=== PATIENT | female | born 1950 | race African-American/Black ===

== ENCOUNTER → 2019-06-20 | Outpatient (CLI) | payer OTHER | LOC: CAT 11:20 | DX: Z13.6 Encounter for screening for cardiovascular disorders (principal); I25.10 Atherosclerotic heart disease of native coronary artery without angina pectoris; E78.00 Pure hypercholesterolemia, unspecified ==

== ENCOUNTER → 2019-06-28 | Outpatient (CLI) | payer OTHER ==
[~2019-06-28] VITALS: Ht 167.6 cm; Wt 88.5 kg
[~2019-06-28] MED LIST: ASPIR 8181 MG PO; CHANTIX0.5 MG PO; CLONIDINE HCL0.2 M2 PO; DITROPAN XL10 M1 PO; EFFEXOR XR75 MG PO; NORVASC10 MG PO; POTASSIUM20 PO; SENNA8.6 MG PO
[2019-06-28 07:53] VITALS: BP 150/79
== END | disposition home or self-care (01) ==
LOC: SPEC 06:53
DX: I70.213 Atherosclerosis of native arteries of extremities with intermittent claudication, bilateral legs (principal); I70.1 Atherosclerosis of renal artery; I10 Essential (primary) hypertension; I25.10 Atherosclerotic heart disease of native coronary artery without angina pectoris; F17.210 Nicotine dependence, cigarettes, uncomplicated; Z88.8 Allergy status to other drugs, medicaments and biological substances; Z79.899 Other long term (current) drug therapy; Z98.890 Other specified postprocedural states

== ENCOUNTER 2019-07-17 07:07 | Observation (INO) | payer OTHER ==
[~2019-07-17] VITALS: Ht 167.6 cm; Wt 90.7 kg
--- NOTE | ~2019-07-17 | H ---
[facility] [place] [address] [place] [address] HISTORY AND PHYSICAL Name: GIOVANI SMILEY Room #: REG WILIAN GuevaraLizzeth#: [id number] Admission: 07/17/19 ������������������ Attend Phys: Chris Hickman MD, Discharge: ������������������ Date of : 54 Report #: [id number] THIS REPORT FOR: //name// CC: Annette Heck HISTORY OF PRESENT ILLNESS: The patient is a 68-year-old female. She has been seen by my partner, Dr. Watson for peripheral vascular disease. She had a prior right SFA intervention. She was brought in today for left SFA intervention and been having some question of anginal-type symptoms, although she is somewhat inactive because of the claudication. She is a tobacco user. She does not have documented coronary artery disease. She has some nonspecific EKG changes with some anterior lateral T-wave abnormalities. She has been maintained on Plavix, aspirin, amlodipine 10, Ditropan, Catapres 0.2 at night, Gillian-Colace, Chantix, Effexor, atorvastatin 40 mg recently started. PAST MEDICAL HISTORY: Positive for hypertension, peripheral vascular disease, tobacco abuse, hypercholesterolemia, DJD, obesity, and bladder surgery. ALLERGIES: BUPROPION, NIFEDIPINE and VALSARTAN. SOCIAL HISTORY: She is . Positive tobacco user, social alcohol. No illicit drugs. Two children. FAMILY HISTORY: Mother had aortic stenosis and an amputation with peripheral vascular disease. REVIEW OF SYSTEMS: Negative except for some mild progressive dyspnea. PHYSICAL EXAMINATION: VITAL SIGNS: Blood pressure is somewhat labile, running 150-170 systolic, pulse is 80s. HEENT: Eyes reveal xanthelasmas. Pharynx is clear. NECK: Shows preserved upstrokes without JVD or bruits. LUNGS: Clear. CARDIOVASCULAR: Regular rate and rhythm, S1, S2. ABDOMEN: Soft. No HSM or abdominal bruit. EXTREMITIES: Reveal no edema. I cannot palpate the distal pulses on the left, the right are intact. MUSCULOSKELETAL: Some valgus deformity of the knees. Generalized arthritic changes. NEUROLOGIC: Intact. SKIN: Warm and dry without xanthoma or ulcer. ASSESSMENT: [facility] [address] [place] [address] HISTORY AND PHYSICAL Name: GIOVANI SMILEY Room #: [facility] [id number] Admission: 07/17/19 ������������������ Attend Phys: Chris Hickman MD, Discharge: ������������������ Date of : 54 Report #: [id number] 1. Peripheral vascular disease as described above. 2. Prior right SFA stent, still has high-grade left SFA stenosis. 3. Suspected coronary artery disease with question of anginal-type symptoms. 4. Hypertension. 5. Hypercholesterolemia. 6. Tobacco abuse. RECOMMENDATIONS AND PLAN: We will proceed to catheterization lab for peripheral vascular intervention, would recommend cardiac catheterization in the same setting, possible intervention if indicated. This has been discussed with the patient and would like to proceed. Thank you for asking me to assist in the care of this patient. ��������������������������������������������� ���������������������������������������� By: ��������������������������������������������� 0910 0935 Chris Hickman MD, FACC /nt
[2019-07-17 07:32] VITALS: BP 155/64
[2019-07-17] MEDS ORDERED: LIPITOR40 MG PO (07:40)
[2019-07-17] MEDS ORDERED: PLAVIX 75 MG TA75 M1 PO (07:41)
[2019-07-17 07:50] LABS: HEMATOCRIT 40.1 % (37.0-47.0); HEMOGLOBIN 13.7 gm/dL (12.0-15.0); MCHC 34.1 g/dL (28.0-37.0); RBC 4.56 mil/uL (4.20-5.00); RDW 15.8 % (10.5-14.5); WBC 8.2 thou/uL (4.0-11.0)
[2019-07-17 07:53] LABS: CALCIUM 9.5 mg/dL (8.5-10.1); CREATININE 0.8 mg/dL (0.6-1.0); POTASSIUM 3.8 mmol/L (3.5-5.1)
--- NOTE | 2019-07-17 08:26 | EKG ---
[place] [address] [facility] [place] [address] ELECTROCARDIOGRAM REPORT Name: GIOVANI SMILEY [facility] [id number] ������������������ Admission: 07/17/19 ������������������ Attend Phys: Chris Hickman MD, Discharge: ������������������ Date of : 54 Report #: [id number] ����������������������������������������������������������������� [id number] THIS REPORT FOR: //name// [facility] Test Date: 2019-07-17 Test Time: 07:56:32 Pat Name: GIOVANI SMILEY Department: Room: Gender: F Room Service Manager: Donnie GARDUNO : 1950 Requested By: Chris Hickman Order Number: [id number] MD: Johnnie Garcia Measurements Intervals [place] Rate: 68 P: 14 IN: 154 QRS: -34 QRSD: 106 T: 119 QT: 411 QTc: 438 Interpretive Statements Sinus rhythm Nonspecific T wave abnormality No previous ECG available for comparison Electronically Signed On 07-17-2019 8:25:46 CDT by Johnnie Garcia [email or web address] ��������������������������������������������� <ELECTRONICALLY SIGNED> ���������������������������������������� By: Johnnie Garcia MD, [facility] ��������������������������������������������� 07/17/19 0825 0756 0756 Johnnie Garcia MD, FACC /EPI
--- NOTE | 2019-07-17 16:54 | CATHLAB ---
[facility] [address] [place] [address] INVASIVE PROCEDURE REPORT Name: GIOVANI SMILEY Room #: REG JUAN Parsons#: [id number] ������������� Admission: 07/17/19 ������������� Attend Phys: Chris Hickman, Discharge: ��� ������������� ��� Date of : 54 Date of Service: 07/17/19 1653 �� Report #: [id number] �������� ��������������������������������������������[id number] THIS REPORT FOR: //name// APPROVED REPORT Study performed: 07/17/2019 08:09:15 Patient Details Patient Status: Out-Patient Room #: The patient is a 68 year-old female Event Personnel Chris Hikcman Spooling Supervisor, Loni Yun RTR, PATIENT CENTERED CARE SPECIALIST Monitor, Lexie Valdez RN RN, Starla Storm RN RN, Carlos Wilhelm, Robert Mosley RTR Monitor Procedures Performed Art Access - R femoral artery* Left Heart Cath w/or w/o Coronaries 6515417 [facility] [address] Place w/wo Plasty Single LAD 576102 19411 Initial Mod Sed Same Phys/QHP Gr5y 096358 Indication Chest pain Procedure Narrative The Right Groin^ was infiltrated with 1% Lidocaine subcutaneous anesthesia. A PINNACLE 6FR Sheath #[id number] sheath was inserted into the RFA^. Coronary angiography was performed using coronary diagnostic catheters. The right coronary system was accessed and visualized with a JR4 catheter. The left coronary system was accessed and visualized with a JL4 catheter. The left ventricle was accessed and visualized with a pigtail catheter. Left ventriculogram was performed in 30 degree projection. Intraoperative Conscious Sedation Sedation start time: 08:30 Case end Time: 09:02 Fentanyl 75.0 mcg Versed 1 mg Fluoro time and Contrast is a total of Cardiac Cath and Interventional Radiology procedures Fluoro Time: 23.15 minutes Dose: DAP 98014.10 cGycm2 2552 mGy Contrast Type and Amount: Visipaque 293 ml [facility] [place] [address] INVASIVE PROCEDURE REPORT Name: BALJITGIOVANI [facility] [id number] ������������� Admission: 07/17/19 ������������� Attend Phys: Chris Hickman, Discharge: ��� ������������� ��� Date of : 54 Date of Service: 07/17/19 1653 �� Report #: [id number] �������� ��������������������������������������������[id number] Hemodynamics The aortic pressure is 170/83 mmHg with a mean of 59 mmHg. The left ventricular pressure is 154/2 mmHg with a mean of mmHg. The left ventricular end diastolic pressure is 25 mmHg. PCI Technique Lesion Percutaneous coronary intervention was performed on the mid left anterior descending artery segment. A LAUNCHER 6FR EBU 3.5 #[id number] Guide Catheter was used to engage the ostium. A Luge Wire .014 x 182CM #[id number] Interventional Guidewire was used to cross the lesion. BALLOON DILATION A Balloon catheter Sprinter OTW 2.5 x 25 #[id number] was inserted and inflated up to 6.00atm for 24seconds. Additional Inflation: 8.00atm for 19seconds. STENT DEPLOYMENT A drug-eluting stent RESOLUTE NATASHA OTW 2.75 X 22 #[id number] was inserted and inflated up to 10.00atm for 27seconds. Additional Inflation: 14.00atm for 28seconds. PCI Technique Lesion 2 Percutaneous Coronary Intervention was performed on the Mid com femoral. PCI Technique Lesion 3 Percutaneous Coronary Intervention was performed on the Common iliac. Conclusion #1 successful PTCA stent of a proximal mid long LAD 90-95% lesion to 0% with a 2.75 x 22 resolute Natasha medicated stent 0% residual SUDHA grade 3 flow #2 left main large free of disease giving rise to LAD and circumflex #3 circumflex OM is nondominant with mild irregularities #4 dominant right coronary artery is moderately diseased in the proximal mid vessel a more focal segment of 70% proximally will follow this closely diffuse disease distally and a dominant vessel. Posterior lateral branch is severely disease and not amenable to intervention. Recommendations and plan: Continue aggressive risk factor modification dual antiplatelet therapy will add Effient DC Plavix. Continue with peripheral intervention per Dr. Watson. We will follow [address] [address] INVASIVE PROCEDURE REPORT Name: MAMIE SMILEYLLE Room #: NERY Parsons#: [id number] ������������� Admission: 07/17/19 ������������� Attend Phys: Chris Hickman, Discharge: ��� ������������� ��� Date of : 54 Date of Service: 07/17/19 1653 �� Report #: [id number] �������� ��������������������������������������������[id number] for possible intervention to dominant right at a later date pending further evaluation with stress testing. Aggressive medical therapy initiation of statin beta blockers. ��������������������������������������������� <ELECTRONICALLY SIGNED> ���������������������������������������� By: Chris Hickman MD, FACC ��������������������������������������������� 07/17/19 165 52 52 Chris Hickman MD, FACC /INF
--- NOTE | 2019-07-17 18:55 | NUR ---
REPORT CALLED TO BOBO FONTANA. PT TAKEN TO ROOM 213 VIA W/C STABLE CONDITION.
[2019-07-17 20:30] VITALS: BP 160/84
[2019-07-18 00:45] VITALS: BP 127/69
[2019-07-18 04:45] VITALS: BP 129/74
--- NOTE | 2019-07-18 05:25 | NUR ---
ASSUMED PT CARE AT START OF SHIFT. COMPLETED ADMIT ASSESSMENT AND CHARTING. R GROIN CATH SITE SOFT WITH NO BLEEDING AND NO HEMATOMA PRESENT. PT HAD NO COMPLAINT OF PAIN THROUGHOUT NIGHT. TEMP ELEVATED AROUND MIDNIGHT, GAVE TYELENOL AND TEMP DECREASED. WILL CONTINUE TO FOLLOW PT POC AND MONITOR.
[2019-07-18 05:33] LABS: HEMATOCRIT 37.8 % (37.0-47.0); HEMOGLOBIN 12.8 gm/dL (12.0-15.0); MCH 29.8 pg (26.0-34.0); MCHC 33.8 g/dL (28.0-37.0); MCV 88.3 fL (80.0-100.0); RBC 4.28 mil/uL (4.20-5.00); RDW 15.7 % (10.5-14.5); WBC 10.8 thou/uL (4.0-11.0)
[2019-07-18 05:40] LABS: ALBUMIN 3.6 g/dL (3.4-5.0); CALCIUM 9.1 mg/dL (8.5-10.1); CREATININE 0.8 mg/dL (0.6-1.0); POTASSIUM 3.6 mmol/L (3.5-5.1); TOTAL BILIRUBIN 0.3 mg/dL (<0.1-1.0); TOTAL PROTEIN 7.1 g/dL (6.4-8.2)
[2019-07-18 05:42] LABS: TROPONIN-I 2.15 ng/mL (<0.06)
[2019-07-18] MEDS ORDERED: EFFIENT10 MG PO (07:33)
[2019-07-18] MEDS ORDERED: ASPIRIN325 PO (07:33)
[2019-07-18] MEDS ORDERED: TOPROL XL25 MG PO (07:35)
[2019-07-18 08:21] VITALS: BP 144/79
--- NOTE | 2019-07-18 08:44 | EKG ---
[place] [address] [facility] [facility] [employer] [address] ELECTROCARDIOGRAM REPORT Name: GIOVANI SMILEY Room #: 213-P [facility] M.R.#: [id number] ������������������ Admission: 07/17/19 ������������������ Attend Phys: Chris Hickman MD, Discharge: ������������������ Date of : 54 Report #: [id number] ����������������������������������������������������������������� [id number] THIS REPORT FOR: //name// [facility] Test Date: 2019-07-17 Test Time: 11:52:08 Pat Name: GIOVANI SMILEY Department: Room: 213 Gender: F Dog Or Horse Racing Official: Donnie GARDUNO : 1950 Requested By: Chris Hickman Order Number: [id number] MD: Johnnie Garcia Measurements Intervals [place] Rate: 55 P: 37 [place]: 149 QRS: -22 QRSD: 109 T: 102 QT: 451 QTc: 432 Interpretive Statements Sinus bradycardia Nonspecific T abnrm, anterolateral leads Compared to ECG 07/17/2019 07:56:32 No significant change was found Electronically Signed On 07-18-2019 8:44:15 CDT by Johnnie Garcia [email or web address] ��������������������������������������������� <ELECTRONICALLY SIGNED> ���������������������������������������� By: Johnnie Garcia MD, [facility] ��������������������������������������������� 07/18/19 0844 1152 1152 Johnnie Garcia MD, [facility] /EPI
--- NOTE | 2019-07-18 09:04 | EKG ---
[place] [address] [address] [facility] [place] [address] ELECTROCARDIOGRAM REPORT Name: GIOVANI SMILEY Room #: 213-[facility] M.R.#: [id number] ������������������ Admission: 07/17/19 ������������������ Attend Phys: Chris Hickman MD, Discharge: ������������������ Date of : 54 Report #: [id number] ����������������������������������������������������������������� [id number] THIS REPORT FOR: //name// [facility] Test Date: 2019-07-18 Test Time: 07:31:54 Pat Name: GIOVANI SMILEY Department: Room: 213 Gender: F [employer]: VERONICA : 1950 Requested By: Chris Hickman Order Number: [id number] MD: Johnnie Garcia Measurements Intervals [place] Rate: 72 P: 37 [place]: 148 QRS: -18 QRSD: 103 T: 104 QT: 380 QTc: 416 Interpretive Statements Sinus rhythm Nonspecific ST and T wave abnormality Compared to ECG 07/17/2019 07:56:32 Nonspecific change in the ST and T-wave segments Electronically Signed On 07-18-2019 9:03:48 CDT by Johnnie Garcia [email or web address] ��������������������������������������������� <ELECTRONICALLY SIGNED> ���������������������������������������� By: Johnnie Garcia MD, [facility] ��������������������������������������������� 07/18/19902 0 0 Johnnie Garcia MD, [facility] /EPI
[2019-07-18 09:51] VITALS: BP 144/76
[2019-07-18 10:01] VITALS: BP 144/76
--- NOTE | 2019-07-18 10:49 | NUR ---
ASSUMED CARE OF PT AT SHIFT CHANGE. ASSESSMENT CHARTED. MEDS GIVEN PER JAN. VSS. A&O. NO C/O PAIN. STEADY ON FEET. FAMILY AT BEDSIDE. DISCHARGE ORDERS COMPLETE. IV AND TELE DC'D. LEFT VIA WHEELCHAIR WITH MATTHIEU.
== END 2019-07-18 10:33 | disposition home or self-care (01) ==
LOC: CATH 07:07 → 2N 19:53 → CATH 19:54 → ENTRNSPT 07-18 10:24 → EDTRNSPTSTS 07-18 10:25 → 2N 07-18 10:33
PROVIDERS: ADMIT Internal Medicine Cardiovascular Disease
DX: I25.10 Atherosclerotic heart disease of native coronary artery without angina pectoris (principal); I70.202 Unspecified atherosclerosis of native arteries of extremities, left leg; I10 Essential (primary) hypertension; E78.5 Hyperlipidemia, unspecified; E78.00 Pure hypercholesterolemia, unspecified; F17.210 Nicotine dependence, cigarettes, uncomplicated; Z79.82 Long term (current) use of aspirin; Z79.899 Other long term (current) drug therapy
CPT/HCPCS: 10081

== ENCOUNTER → 2019-12-02 | Outpatient (CLI) | payer OTHER ==
[~2019-12-02] MED LIST changes: +ASPIRIN325 PO; +BUPROPION XL300 MG PO; +BYSTOLIC10 MG PO; +EFFIENT10 MG PO; +LIPITOR40 MG PO; +PLAVIX 75 MG TA75 M1 PO; +PLAVIX 75 MG TA75 MG PO; +TOPROL XL25 MG PO; +VESICARE10 M1 PO
== END ==
LOC: SJCVCIMAG 08:17
DX: I65.23 Occlusion and stenosis of bilateral carotid arteries (principal); I73.9 Peripheral vascular disease, unspecified; I77.1 Stricture of artery; F17.200 Nicotine dependence, unspecified, uncomplicated

== ENCOUNTER → 2019-12-05 | Outpatient (CLI) | payer OTHER | LOC: SJCVC 11:23 | DX: I49.3 Ventricular premature depolarization (principal); I25.10 Atherosclerotic heart disease of native coronary artery without angina pectoris; I10 Essential (primary) hypertension; E78.5 Hyperlipidemia, unspecified; I73.9 Peripheral vascular disease, unspecified; Z72.0 Tobacco use; Z79.899 Other long term (current) drug therapy ==

== ENCOUNTER 2019-12-12 09:47 | Observation (INO) | payer OTHER ==
[2019-12-12] VITALS (9 sets, daily range): BP systolic 135–159; BP diastolic 70–93
[~2019-12-12] VITALS: Ht 167.6 cm; Wt 81.7 kg
--- NOTE | ~2019-12-12 | EKG ---
[facility] [place] [address] [place] [address] ELECTROCARDIOGRAM REPORT Name: GIOVANI SMILEY Room #: 211-[facility] M.R.#: [id number] Admission: 12/12/19 Attend Phys: Chris Hickman MD, Discharge: Date of : 54 Report #: [id number] THIS REPORT FOR: cc: Padmini Heck MD, Teresa MD Epiphany, Epiphany MD ~ THIS REPORT FOR: //name// [facility] Test Date: 2019-12-13 Test Time: 07:17:23 Pat Name: GIOVANI SMILEY Department: Room: 211 Gender: F Cable Worker Helper: VERONICA : 1950 Requested By: Constance King Order Number: [id number] MD: Measurements Intervals Faith Rate: 71 P: 53 MT: 146 QRS: -26 QRSD: 101 T: 133 QT: 401 QTc: 436 Interpretive Statements Sinus rhythm Ventricular trigeminy Borderline left axis deviation Abnormal T, consider ischemia, lateral leads Compared to ECG 12/12/2019 10:30:36 Ventricular premature complex(es) now present T-wave abnormality now present Possible ischemia now present Left ventricular hypertrophy no longer present Early repolarization no longer present [email or web address] By: 6 6 Epiphany Epiphany, /JOHN
--- NOTE | ~2019-12-12 | EKG ---
[facility] [place] [address] ELECTROCARDIOGRAM REPORT Name: MAMIE SMILEYLLE Room #: REG [facility]#: [id number] Admission: 12/12/19 Attend Phys: Chris Hickman MD, Discharge: Date of : 54 Report #: [id number] THIS REPORT FOR: cc: Padmini Heck MD, Teresa MD Epiphany, Epiphany MD ~ THIS REPORT FOR: //name// [facility] Test Date: 2019-12-12 Test Time: 10:30:36 Pat Name: GIOVANI SMILEY Department: Room: Gender: Jewelry Sales Coordinator: Donnie GARDUNO : 1950 Requested By: Chris Hickman Order Number: [id number] MD: Measurements Intervals [place] Rate: 56 P: 30 AL: 151 QRS: -14 QRSD: 104 T: 108 QT: 443 QTc: 428 Interpretive Statements Sinus rhythm LVH with secondary repolarization abnormality Compared to ECG 07/18/2019 07:31:54 Left ventricular hypertrophy now present Early repolarization now present ST (T wave) deviation no longer present [email or web address] By: 1030 1030 Epiphany Epiphany, [place] /EPI
[~2019-12-12 09:47] MED LIST changes: -BUPROPION XL300 MG PO; -BYSTOLIC10 MG PO; -PLAVIX 75 MG TA75 MG PO; -VESICARE10 M1 PO
[2019-12-12 10:37] LABS: ABSOLUTE NEUTROPHILS 4.7 thou/uL (1.4-8.2); BASOPHILS 0.4 % (0.0-2.0); EOSINOPHILS 1.4 % (0.0-3.0); HEMATOCRIT 40.6 % (37.0-47.0); HEMOGLOBIN 13.4 gm/dL (12.0-15.0); LYMPHOCYTES 36.1 % (24.0-44.0); MCH 29.5 pg (26.0-34.0); MCHC 33.1 g/dL (28.0-37.0); MCV 89.3 fL (80.0-100.0); MONOCYTES 5.6 % (1.0-8.0); PLATELET COUNT 335 thou/uL (150-400); POLYS 56.5 % (36.0-66.0); RBC 4.55 mil/uL (4.20-5.00); RDW 17.4 % (10.5-14.5); WBC 8.3 thou/uL (4.0-11.0)
[2019-12-12 10:44] LABS: CALCIUM 9.1 mg/dL (8.5-10.1); POTASSIUM 3.5 mmol/L (3.5-5.1)
[2019-12-12] MEDS ORDERED: BUPROPION XL300 MG PO ×2 (10:52)
[2019-12-12] MEDS ORDERED: BYSTOLIC10 MG PO ×2 (10:53)
[2019-12-12] MEDS ORDERED: VESICARE10 M1 PO ×2 (10:53)
[2019-12-12] MEDS ORDERED: PLAVIX 75 MG TA75 MG PO ×2 (10:54)
--- NOTE | 2019-12-12 17:09 | NUR ---
PATIENT ARRIVED FROM CV LAB AT 1545,ALERT AND ORIENTED X4. RT GRION SITE D/C/I. ADMISION COMPLETED, AND WILL COTNIUE TO MONITOR.
--- NOTE | 2019-12-12 18:23 | CATHLAB ---
[facility] [place] [address] INVASIVE PROCEDURE REPORT Name: GIOVANI SMILEY Room #: 211-P ADM Charis Parsons#: [id number] Admission: 12/12/19 Attend Phys: Chris Hickman MD, Discharge: Date of : 54 Report #: [id number] THIS REPORT FOR: cc: Padmini Heck MD, Teresa MD Mancuso, Gerald M. MD [facility] ~ APPROVED REPORT Study performed: 12/12/2019 13:33:01 Patient Details Patient Status: Out-Patient Room #: The patient is a 69 year-old female Event Personnel Chris Hickman Servicenow Administrator Developer, Kira Colon RN RN, Loni Yun RTR, Dimitri Cristina Sherra RTR Monitor Procedures Performed Art Access - R femoral artery* Left Heart Cath w/or w/o Coronaries 0634237 [facility] Aortogram Abdominal Peripheral Angio 13[address] w/wo Plasty Single RCA 772646 37218 Initial Mod Sed Same Phys/QHP Gr5y 695562 22331 Mod Sed Same Phys/QHP Ea 879912 Hemostasis w/ Mynx Indication Chest pain Procedure Narrative The Right Groin^ was infiltrated with 1% Lidocaine subcutaneous anesthesia. A PINNACLE 6FR Sheath #[id number] sheath was inserted into the RFA^. Coronary angiography was performed using coronary diagnostic catheters. The right coronary system was accessed and visualized with a LAUNCHER 6FR 3DRC #[id number] catheter. The left coronary system was accessed and visualized with a JL4 catheter. The left ventricle was accessed and visualized with a pigtail catheter. Left ventriculogram was performed in 30 degree projection. An aortogram of the abdominal aorta was performed. Pre-demployment femoral angiogram was performed . Closure device was deployed with a 6 Fr MYNXGRIP 6/7F #[id number]. The patient tolerated the procedure well and there were no complications associated with the procedure. There was no hematoma. [facility] [address] [place] [address] INVASIVE PROCEDURE REPORT Name: GIOVANI SMILEY Room #: 211-P [facility] [place] [facility].#: [id number] Admission: 12/12/19 Attend Phys: Chris Hickman, Discharge: Date of : 54 Report #: [id number] Intraoperative Conscious Sedation Sedation start time: 1418 Case end Time: 1508 Fentanyl 100 mcg Versed 1 mg Fluoro Time: 5.37 minutes Dose: DAP 6909.20 cGycm2 815 mGy Contrast Type and Amount: Omnipaque 150 ml Hemodynamics The aortic pressure is 192/89 mmHg with a mean of 62 mmHg. The left ventricular pressure is 169/11 mmHg with a mean of mmHg. The left ventricular end diastolic pressure is 33 mmHg. PCI Technique Lesion Percutaneous coronary intervention was performed on the proximal right coronary artery. A LAUNCHER 6FR [facility] #269332 Guide Catheter was used to engage the ostium. A Luge Wire .014 x 182CM #[id number] Interventional Guidewire was used to cross the lesion. STENT DEPLOYMENT A drug-eluting stent RESOLUTE NATASHA OTW 2.75 X 15 #[id number] was inserted and inflated up to 14.00atm for 30seconds. Additional Inflation: 18.00atm for 27seconds. Conclusion #1 successful PTCA stent of the dominant right coronary artery eccentric 80-90% proximal lesion to 0% placement of a 2.75 x 15 resolute drug-eluting stent 0% residual #2 left main mild irregularity giving rise to LAD and circumflex #3 LAD is widely patent there is a proximal stent placed previously which is widely patent mild diffuse distal disease #4 circumflex OM with mild irregularities nondominant #5 a ramus intermedius branch with mild disease #6 normal left jugular size and systolic function EF 55% #7 abdominal aortogram revealing a mild aortic ectasia bilateral iliac stents are widely patent Recommendations and plan: Patient pain-free hemodynamically stable. We'll transfer to CCU to follow post stent protocol. Continue dual antiplatelet therapy. <ELECTRONICALLY SIGNED> By: Chris Hickamn MD, FACC 12/12/191821 21 21 Chris Hickman MD, FACC /INF
[2019-12-13] VITALS (7 sets, daily range): BP systolic 130–153; BP diastolic 53–73
--- NOTE | 2019-12-13 03:24 | NUR ---
ASSESSMENT DOCUMENTED.PT BEEN RESTING IN NO ACUTE DISTRESS.A/OX4.VSS.POST CATH WITH INTERVENTION TO RCA.RIGHT GROIN W/O HEMATOMA OR ACTIVE BLEEDING,DRESSING CDI.MYNX CLOSURE APPLIED .UP TO BR,VOIDING ADEQUATELY.SR W/PVCS ON MONITOR.POSSIBLE DISCHARGE TO HOME TODAY.
[2019-12-13 05:19] LABS: HEMATOCRIT 40.5 % (37.0-47.0); HEMOGLOBIN 13.4 gm/dL (12.0-15.0); MCH 29.6 pg (26.0-34.0); MCHC 33.1 g/dL (28.0-37.0); MCV 89.3 fL (80.0-100.0); RBC 4.54 mil/uL (4.20-5.00); RDW 17.4 % (10.5-14.5); WBC 9.4 thou/uL (4.0-11.0)
[2019-12-13 05:43] LABS: ALBUMIN 3.8 g/dL (3.4-5.0); CALCIUM 8.7 mg/dL (8.5-10.1); CREATININE 0.7 mg/dL (0.6-1.0); POTASSIUM 3.2 mmol/L (3.5-5.1); TOTAL BILIRUBIN 0.6 mg/dL (<0.1-1.0); TOTAL PROTEIN 7.1 g/dL (6.4-8.2); TROPONIN-I 0.11 ng/mL (<0.06)
--- NOTE | 2019-12-13 10:07 | NUR ---
AAOX4. BEING DISCHARGED TO HOME. DISCHARGE INSTRUCTIONS GIVEN.
== END 2019-12-13 10:52 | disposition home or self-care (01) ==
LOC: CATH 09:47 → 2N 15:43 → ENTRNSPT 12-13 10:31 → EDTRNSPTSTS 12-13 10:37 → 2N 12-13 10:52
PROVIDERS: Nurse Practitioner Adult Health; ADMIT Internal Medicine Cardiovascular Disease
DX: I25.10 Atherosclerotic heart disease of native coronary artery without angina pectoris (principal); I10 Essential (primary) hypertension; E78.5 Hyperlipidemia, unspecified; I73.9 Peripheral vascular disease, unspecified; F17.200 Nicotine dependence, unspecified, uncomplicated; E78.00 Pure hypercholesterolemia, unspecified

== ENCOUNTER → 2020-06-05 | Outpatient (CLI) | payer OTHER ==
[~2020-06-05] MED LIST changes: +BUPROPION XL300 MG PO; +BYSTOLIC10 MG PO; +PLAVIX 75 MG TA75 MG PO; +VESICARE10 M1 PO
== END ==
LOC: SJCVCIMAG 08:22
PROVIDERS: ATTEND Internal Medicine Cardiovascular Disease
DX: T82.856A Stenosis of peripheral vascular stent, initial encounter (principal); M79.604 Pain in right leg; R00.1 Bradycardia, unspecified; R94.31 Abnormal electrocardiogram [ECG] [EKG]; I25.10 Atherosclerotic heart disease of native coronary artery without angina pectoris; I10 Essential (primary) hypertension; E78.5 Hyperlipidemia, unspecified; F17.210 Nicotine dependence, cigarettes, uncomplicated; Z79.82 Long term (current) use of aspirin; Z79.899 Other long term (current) drug therapy; Z95.828 Presence of other vascular implants and grafts; Y83.8 Other surgical procedures as the cause of abnormal reaction of the patient, or of later complication, without mention of misadventure at the time of the procedure; Y92.89 Other specified places as the place of occurrence of the external cause

== ENCOUNTER → 2020-06-10 | Outpatient (CLI) | payer OTHER ==
[~2020-06-10] VITALS: Ht 167.6 cm; Wt 90.7 kg
[2020-06-10 07:12] VITALS: BP 140/62
[2020-06-10 07:37] LABS: HEMATOCRIT 41.9 % (37.0-47.0); HEMOGLOBIN 14.1 gm/dL (12.0-15.0); MCH 30.4 pg (26.0-34.0); MCHC 33.6 g/dL (28.0-37.0); MCV 90.6 fL (80.0-100.0); RBC 4.63 mil/uL (4.20-5.00); RDW 16.7 % (10.5-14.5); WBC 8.9 thou/uL (4.0-11.0)
[2020-06-10 07:44] LABS: CREATININE 1.2 mg/dL (0.6-1.0); POTASSIUM 3.8 mmol/L (3.5-5.1)
--- NOTE | 2020-06-10 08:42 | EKG ---
[facility] [place] [address] ELECTROCARDIOGRAM REPORT Name: GIOVANI SMILEY Room #: REG [facility].#: [id number] Admission: 06/10/20 Attend Phys: Carlos Watson MD Discharge: Date of : 54 Report #: [id number] THIS REPORT FOR: cc: Padmini Heck MD, Teresa MD Lundgren,Johnnie Rich MD [facility] ~ THIS REPORT FOR: //name// [facility] Test Date: 2020-06-10 Test Time: 07:30:32 Pat Name: GIOVANI SMILEY Department: Room: Gender: F Manager Medical Writing: CAMMY : 1950 Requested By: Chris Hickman Order Number: [id number] MD: Johnnie Garcia Measurements Intervals [place] Rate: 64 P: 53 FL: 153 QRS: -19 QRSD: 103 T: 125 QT: 411 QTc: 424 Interpretive Statements Sinus rhythm Abnormal R-wave progression, late transition LVH with secondary repolarization abnormality Baseline wander in lead(s) II,III,aVF Compared to ECG 12/13/2019 07:17:23 Ventricular premature complex(es) no longer present Electronically Signed On 06-10-2020 8:42:31 CDT by Johnnie Garcia [email or web address] <ELECTRONICALLY SIGNED> By: Johnnie Garcia MD, [facility] 06/10/2042 9 9 Johnnie Garcia MD, [facility] /EPI
--- NOTE | 2020-06-10 18:14 | CATHLAB ---
[facility] [place] [address] INVASIVE PROCEDURE REPORT Name: GIOVANI SMILEY Room #: REG WILIAN Guevara.#: [id number] Admission: 06/10/20 Attend Phys: Carlos Watson MD Discharge: Date of : 54 Report #: [id number] THIS REPORT FOR: cc: Padmini Heck MD, Teresa MD Mancuso, Gerald M. MD [facility] ~ APPROVED REPORT Study performed: 06/10/2020 07:31:08 Patient Details Patient Status: Out-Patient Room #: The patient is a 69 year-old female Event Personnel Chris Hickman [employer]nc Mill Programmer, Thalia Genao RTR Monitor, José Luis Tate RTR Scrub, Sommer Burns RT(R)() Kanu, Fidel Biggs pre kindergarten teacher Performed Art Access - R femoral artery* Left Heart Cath w/or w/o Coronaries [id number] [facility] [id number] Initial Mod Sed Same Phys/QHP Gr5y [id number] Mod Sed Same Phys/QHP Ea [id number] Hemostasis w/ Mynx Procedure Narrative The Right Groin^ was infiltrated with 1% Lidocaine subcutaneous anesthesia. A PINNACLE 6FR Sheath #[id number] sheath was inserted into the RFA^. Coronary angiography was performed using coronary diagnostic catheters. The right coronary system was accessed and visualized with a JR4 catheter. The left coronary system was accessed and visualized with a JL4 catheter. The left ventricle was accessed and visualized with a PIGTAIL catheter. Left ventriculogram was performed in 30 degree projection. Closure device was deployed with a Fr MYNX CONTROL 6F/7F L#[id number]. The patient tolerated the procedure well and there were no complications associated with the procedure. There was no hematoma. Intraoperative Conscious Sedation Sedation start time: 8:58 Case end Time: 10:50 Fentanyl 200 mcg Versed 4 mg SEDATION, CONTRAST AND FLUORO TIME ARE A COMBINED TOTAL FROM THE HEART CATH PROCEDURE AND THE RUNOFF PROCEDURE. [facility] [address] [place] [address] INVASIVE PROCEDURE REPORT Name: BALJITGIOVANI Room #: REG [facility]#: [id number] Admission: 06/10/20 Attend Phys: Carlos Watson, Discharge: Date of : 54 Report #: [id number] Fluoro Time: 13.17 minutes Dose: DAP 50705.90 cGycm2 1291 mGy Contrast Type and Amount: Visipaque 183 ml Hemodynamics The aortic pressure is 155/80 mmHg with a mean of 86 mmHg. The left ventricular pressure is 182/11 mmHg with a mean of mmHg. The left ventricular end diastolic pressure is 19 mmHg. PCI Technique Lesion Percutaneous coronary intervention was performed on the Unspecified. Conclusion 1. Normal left jugular size and systolic function EF 60% #2 left main mild disease giving rise to LAD and circumflex #3 LAD is a previously placed proximal stent with minimal in-stent restenosis brisk flow into the mid distal LAD. #4 there is a ramus intermedius branch with mild mid vessel disease 30 to 40% #5 nondominant circumflex also giving rise to a moderate OM branch and diffuse distal disease in the AV groove. #6 dominant right coronary artery moderate disease throughout the mid vessel. There is a proximal stent which has minimal in-stent restenosis there is 3040% mid mid distal stenoses giving rise to a PDA CRESENCIO well preserved Recommendations and plan: Continue aggressive risk factor modification. Patient to undergo peripheral intervention by Dr. Watson see his dictation. <ELECTRONICALLY SIGNED> By: Chris Hickman MD, FACC 06/10/201812 12 12 Chris Hickman MD, FACC /INF
== END | disposition home or self-care (01) ==
LOC: CATH 06:44
PROVIDERS: Internal Medicine Cardiovascular Disease; ATTEND Nuclear Medicine Nuclear Cardiology
DX: I25.10 Atherosclerotic heart disease of native coronary artery without angina pectoris (principal); T82.855A Stenosis of coronary artery stent, initial encounter; I70.213 Atherosclerosis of native arteries of extremities with intermittent claudication, bilateral legs; I70.1 Atherosclerosis of renal artery; I10 Essential (primary) hypertension; E78.00 Pure hypercholesterolemia, unspecified; F17.210 Nicotine dependence, cigarettes, uncomplicated; Z98.890 Other specified postprocedural states; Z79.899 Other long term (current) drug therapy; Z88.8 Allergy status to other drugs, medicaments and biological substances

== ENCOUNTER → 2020-09-15 | Outpatient (CLI) | payer OTHER | LOC: SJCVCIMAG 11:22 | PROVIDERS: ATTEND Nuclear Medicine Nuclear Cardiology | DX: I73.9 Peripheral vascular disease, unspecified (principal); M79.604 Pain in right leg; M79.605 Pain in left leg; I25.10 Atherosclerotic heart disease of native coronary artery without angina pectoris; I77.9 Disorder of arteries and arterioles, unspecified; I10 Essential (primary) hypertension; Z72.0 Tobacco use; Z95.828 Presence of other vascular implants and grafts; Z79.899 Other long term (current) drug therapy ==

== ENCOUNTER → 2021-04-20 | Outpatient (CLI) | payer OTHER | LOC: SJCVCIMAG 08:59 | PROVIDERS: ATTEND Internal Medicine Cardiovascular Disease | DX: I65.23 Occlusion and stenosis of bilateral carotid arteries (principal); I70.202 Unspecified atherosclerosis of native arteries of extremities, left leg; I77.9 Disorder of arteries and arterioles, unspecified; I25.10 Atherosclerotic heart disease of native coronary artery without angina pectoris; I10 Essential (primary) hypertension; F17.210 Nicotine dependence, cigarettes, uncomplicated; Z72.89 Other problems related to lifestyle; Z79.82 Long term (current) use of aspirin; Z79.899 Other long term (current) drug therapy; Z88.1 Allergy status to other antibiotic agents; Z88.8 Allergy status to other drugs, medicaments and biological substances ==